=== PATIENT | male | born 1960 | race Native Hawaiian/Other Pacific Islander ===

== ENCOUNTER 2020-07-29 19:35 | Emergency (ER) | payer OTHER ==
[~2020-07-29] VITALS: Ht 182.9 cm; Wt 79.4 kg
[2020-07-29 19:35] VITALS: BP 138/60; TEMP 98.3
[2020-07-29 20:14] LABS: PLATELET COUNT 226 K/uL (142-355)
[2020-07-29] MEDS ORDERED: DOCU SOFT100 MG PO (23:00)
[2020-07-29] MEDS ORDERED: FLUPHENAZINE25 MG/ML IM (23:02)
[2020-07-29] MEDS ORDERED: LEXAPRO20 MG PO (23:03)
[2020-07-29] MEDS ORDERED: MELATONIN3 M1 PO (23:04)
[2020-07-29] MEDS ORDERED: RISPERDAL3 MG PO (23:05)
[2020-07-29] MEDS ORDERED: RISPERDAL4 MG PO (23:06)
[2020-07-29] MEDS ORDERED: SENNA-TABS8.6 MG PO (23:08)
[2020-07-29] MEDS ORDERED: ARTIFICIAL TEAR1.4 % OPTH (23:14)
[2020-07-29] MEDS ORDERED: DEPAKOTE DR PO (23:16)
[2020-07-29] MEDS ORDERED: OXYC5TAB53 PO (23:19)
[2020-07-29] MEDS ORDERED: LORA0.5T17 PO (23:20)
[2020-07-29] MEDS ORDERED: SOD CHLORIDE1 GM PO (23:21)
[2020-07-29] MEDS ORDERED: BENADRYL 50M50 MG/ML IM (23:26)
[2020-07-29] MEDS ORDERED: HALO5INJ3 IM (23:29)
[2020-08-05] MEDS ORDERED: RISP50IN IM (10:19)
[2020-08-05] MEDS ORDERED: OLAN2.5T2 PO (10:20)
[2020-08-05] MEDS ORDERED: RISP1TAB PO (10:20)
[2020-08-05] MEDS ORDERED: NICOTINE T14 MG/241 TD (10:21)
[2020-08-05] MEDS ORDERED: HYDR-3182 PO (10:22)
[2020-08-05] MEDS ORDERED: DIVALPROEX500 MG PO (10:25)
[2020-08-05] MEDS ORDERED: BENZ1TAB43 PO (10:25)
[2020-08-05] MEDS ORDERED: DIVA250T2 PO (10:25)
[2020-08-05] MEDS ORDERED: CHOL100034 PO (10:25)
== END 2020-07-29 21:49 | disposition still patient (30) ==
LOC: ED 19:46
PROVIDERS: Hospitalist
DX: F20.0 Paranoid schizophrenia (principal); F31.89 Other bipolar disorder; F41.8 Other specified anxiety disorders; Z11.59 Encounter for screening for other viral diseases; Z04.6 Encounter for general psychiatric examination, requested by authority
CPT/HCPCS: 36415; 80053; 81000; 85027; 87635; 93005; 96372; 99283; U0003